=== PATIENT | female | born 1955 | race Hispanic/Latino ===

== ENCOUNTER 2018-01-09 08:14 | Outpatient (CLI) | payer OTHER ==
--- NOTE | 2018-01-09 11:37 | BD ---
BONE DENSITOMETRY USING DEXA: Date: 01/09/18 HISTORY: Postmenopausal screening for osteoporosis. FINDINGS: Lumbar Spine: BMD (g/cm2) L1 0.880 T-Score: -1.9 Z-Score: 0.3 L2 1.040 T-Score: 0.1 Z-Score: 1.5 L3 1.106 T-Score: 0.2 Z-Score: 1.7 L4 1.123 T-Score: 0.6 Z-Score: 2.1 L1-L4 1.045 T-Score: 0.0 Z-Score: 1.4 Femoral Neck: 0.555 T-Score: -2.6 Z-Score: -1.5 Total Femur: 0.778 T-Score: -1.3 Z-Score: -0.4 The 10 year fracture risk for a major osteoporotic fracture is 9.9% and for a hip fracture is 2.1%. IMPRESSION: Osteoporosis. POS: MARIANA
== END 2018-01-09 08:15 | disposition home or self-care (01) ==
LOC: BICMAMMO 08:14
PROVIDERS: ATTEND Obstetrics & Gynecology
DX: Z12.31 Encounter for screening mammogram for malignant neoplasm of breast (principal); Z13.820 Encounter for screening for osteoporosis; M81.0 Age-related osteoporosis without current pathological fracture
CPT/HCPCS: 77063; 77067; 77080

== ENCOUNTER 2019-01-02 08:17 | Outpatient (CLI) | payer OTHER ==
--- NOTE | 2019-01-02 09:01 | MMO ---
Bilateral MAMMO Bilat Screen [facility]. CLINICAL HISTORY: Patient is 63 years old and is seen for screening. The patient has no family history of breast cancer. The patient has no personal history of cancer. VIEWS: The views performed were: bilateral craniocaudal with tomosynthesis and bilateral mediolateral oblique with tomosynthesis. This study has been interpreted with the assistance of computer-aided detection. MAMMOGRAM FINDINGS: The breasts are heterogeneously dense, which could obscure a lesion on mammography. There are no suspicious masses, suspicious calcifications, or new areas of architectural distortion. IMPRESSION: THERE IS NO MAMMOGRAPHIC EVIDENCE OF MALIGNANCY. A ROUTINE FOLLOW-UP MAMMOGRAM IN 1 YEAR IS RECOMMENDED. THE RESULTS OF THIS EXAM WERE SENT TO THE PATIENT. ACR BI-RADS Category 1 - Negative MAMMOGRAPHY NOTE: 1. A negative mammogram report should not delay a biopsy if a dominant of clinically suspicious mass is present. 2. Approximately 10% to 15% of breast cancers are not detected by mammography. 3. Adenosis and dense breasts may obscure an underlying neoplasm. Reported by: DEANNA MENDEZ MD Electonically Signed: [id number]
--- NOTE | 2019-01-02 09:24 | BD ---
DEXA BONE DENSITY STUDY: HISTORY: Postmenopausal. FINDINGS: Lumbar Spine: BMD (g/cm2) L1 0.880 T-Score: -1.0 L2 1.042 T-Score: +0.1 L3 1.089 T-Score: +0.0 L4 1.122 T-Score: +0.6 L1-L4 1.041 T-Score: -0.1 Femoral Neck: 0.536 T-Score: -2.8 Total Femur: 0.734 T-Score: -1.7 Impression: Normal bone mineral density of the lumbar spine and osteoporosis of the left femoral neck. POS: FABIANA
== END 2019-01-02 08:18 | disposition home or self-care (01) ==
LOC: BICMAMMO 08:17
PROVIDERS: ATTEND Obstetrics & Gynecology
DX: Z12.31 Encounter for screening mammogram for malignant neoplasm of breast (principal); Z13.820 Encounter for screening for osteoporosis
CPT/HCPCS: 77063; 77067; 77080

== ENCOUNTER 2020-02-23 08:36 | Outpatient (CLI) | payer OTHER ==
--- NOTE | 2020-02-23 09:01 | BD ---
DEXA bone density scan: 02/23/2020 COMPARISON: 01/02/2019. HISTORY: Postmenopausal female undergoing screening for osteoporosis. FINDINGS: Lumbar Spine BMD (g/cm2) L1 0.873 T-Score -1.1 (previous -1.0) L2 1.057 T-Score 0.3 (previous 0.1) L3 1.165 T-Score 0.7 (previous 0.0) L4 1.113 T-Score 0.5 (previous 0.6) L1-L4 1.061 T-Score 0.1 (previous -0.1) Femoral Neck 0.549 T-Score -2.7 (previous -2.8) Total Femur 0.748 T-Score -1.6 (previous -1.7) The FRAX-WHO fracture risk assessment tool is not reported as some T-Scores are at or below -2.5. IMPRESSION: Femoral neck osteoporosis, correlating with a high associated risk for fracture. Transcribed Date/Time: 02/23/2020 9:08 AM
--- NOTE | 2020-02-23 10:26 | MMO ---
Bilateral MAMMO Bilat Screen [facility]. CLINICAL HISTORY: Patient is 64 years old and is seen for screening. The patient has no family history of breast cancer. The patient has no personal history of cancer. VIEWS: The views performed were: bilateral craniocaudal with tomosynthesis and bilateral mediolateral oblique with tomosynthesis. FILMS COMPARED: The present examination has been compared to prior imaging studies performed at [facility]. on 12/30/2014 and 12/09/2015. This study has been interpreted with the assistance of computer-aided detection. MAMMOGRAM FINDINGS: The breasts are heterogeneously dense, which could obscure a lesion on mammography. There are no suspicious masses, suspicious calcifications, or new areas of architectural distortion. IMPRESSION: THERE IS NO MAMMOGRAPHIC EVIDENCE OF MALIGNANCY. A ROUTINE FOLLOW-UP MAMMOGRAM IN 1 YEAR IS RECOMMENDED. THE RESULTS OF THIS EXAM WERE SENT TO THE PATIENT. ACR BI-RADS Category 1 - Negative MAMMOGRAPHY NOTE: 1. A negative mammogram report should not delay a biopsy if a dominant of clinically suspicious mass is present. 2. Approximately 10% to 15% of breast cancers are not detected by mammography. 3. Adenosis and dense breasts may obscure an underlying neoplasm. Reported by: ARTEMIO MARSH MD Electonically Signed: [id number]
== END 2020-02-23 08:37 | disposition home or self-care (01) ==
LOC: BICMAMMO 08:36
PROVIDERS: ATTEND Obstetrics & Gynecology
DX: Z12.31 Encounter for screening mammogram for malignant neoplasm of breast (principal); Z13.820 Encounter for screening for osteoporosis; M81.0 Age-related osteoporosis without current pathological fracture
CPT/HCPCS: 77063; 77067; 77080

== ENCOUNTER 2021-01-10 08:48 | Outpatient (CLI) | payer OTHER | END 2021-01-10 08:49 | disposition home or self-care (01) | LOC: BICMAMMO 08:48 | PROVIDERS: ATTEND Obstetrics & Gynecology | DX: Z12.31 Encounter for screening mammogram for malignant neoplasm of breast (principal); Z13.820 Encounter for screening for osteoporosis; N95.1 Menopausal and female climacteric states; M81.0 Age-related osteoporosis without current pathological fracture; M85.88 Other specified disorders of bone density and structure, other site | CPT/HCPCS: 77063; 77067; 77080 ==

== ENCOUNTER 2022-01-12 08:13 | Outpatient (CLI) | payer OTHER | END 2022-01-12 08:14 | disposition home or self-care (01) | LOC: BICMAMMO 08:13 | PROVIDERS: ATTEND Obstetrics & Gynecology | DX: Z12.31 Encounter for screening mammogram for malignant neoplasm of breast (principal); Z13.820 Encounter for screening for osteoporosis; N95.1 Menopausal and female climacteric states; M81.0 Age-related osteoporosis without current pathological fracture | CPT/HCPCS: 77063; 77067; 77080 ==

== ENCOUNTER 2023-01-15 08:39 | Outpatient (CLI) | payer MEDICARE | END 2023-01-15 08:40 | disposition home or self-care (01) | LOC: BICMAMMO 08:39 | PROVIDERS: ATTEND Obstetrics & Gynecology | DX: Z13.820 Encounter for screening for osteoporosis (principal); M81.0 Age-related osteoporosis without current pathological fracture; M85.832 Other specified disorders of bone density and structure, left forearm | CPT/HCPCS: 77080 ==

== ENCOUNTER 2023-02-01 10:58 | Outpatient (CLI) | payer MEDICARE | END 2023-02-01 10:59 | disposition home or self-care (01) | LOC: BICMAMMO 10:58 | PROVIDERS: ATTEND Obstetrics & Gynecology | DX: Z12.31 Encounter for screening mammogram for malignant neoplasm of breast (principal) | CPT/HCPCS: 77063; 77067 ==

== ENCOUNTER 2024-02-04 08:28 | Outpatient (CLI) | payer MEDICARE | END 2024-02-04 08:29 | disposition home or self-care (01) | LOC: BICMAMMO 08:28 | PROVIDERS: ATTEND Internal Medicine Allergy & Immunology | DX: Z13.820 Encounter for screening for osteoporosis (principal); Z12.31 Encounter for screening mammogram for malignant neoplasm of breast; M81.0 Age-related osteoporosis without current pathological fracture; M85.832 Other specified disorders of bone density and structure, left forearm | CPT/HCPCS: 77063; 77067; 77080 ==

== ENCOUNTER 2025-02-04 08:50 | Outpatient (CLI) | payer MEDICARE | END 2025-02-04 08:51 | disposition home or self-care (01) | LOC: BICMAMMO 08:50 | PROVIDERS: ATTEND Obstetrics & Gynecology | DX: Z12.31 Encounter for screening mammogram for malignant neoplasm of breast (principal); Z78.0 Asymptomatic menopausal state; M81.0 Age-related osteoporosis without current pathological fracture | CPT/HCPCS: 77066; 77080; G0279 ==